=== PATIENT | female | born 1935 | race Caucasian/White ===

== ENCOUNTER 2021-08-16 14:11 | Inpatient (IN) | payer OTHER ==
[2021-08-16 15:20] LABS: Absolute Lymphocytes (CBC) 1.4 K/uL (0.7-4.9); Basophils % 0.7 % (0-1.3); Hematocrit 41.7 % (36.0-45.0); Lymphocytes % 19.7 % (15.3-44.8); MPV 9.7 fL (7.6-11.3)
--- NOTE | 2021-08-16 15:32 | RAD REPORT ---
EXAM DESCRIPTION: RAD - Chest Single View - 08/16/2021 3:22 pm CLINICAL HISTORY: weakness, sob COMPARISON: <Comparisons> FINDINGS: Lines: None. Lungs: Emphysema. Increased basilar airspace disease is noted. Pleural: No significant pleural effusions or pneumothorax. Cardiac: The heart size is within normal limits. Bones: Remote rib fractures. Other: Large hiatal hernia. IMPRESSION: Increasing ill-defined basilar opacities which may reflect pneumonia.
[2021-08-16 15:40] LABS: BUN Blood Urea Nitrogen 15 mg/dL (7-18); Bicarbonate 27 mmol/L (21-32); Glucose Level 155 mg/dL (74-106); Magnesium 1.5 mg/dL (1.8-2.4); NT PRO-BNP 555 pg/mL (<450); Potassium 4.3 mmol/L (3.5-5.1); Sodium Level 143 mmol/L (136-145); Troponin (Emerg Dept Use Only) < 0.02 ng/mL (0.0-0.045)
[2021-08-16] MEDS ORDERED: NA CHLORIDE 0.9% 500 ML ONE (16:08)
[2021-08-16] MEDS ORDERED: METHYLPREDNISOLONE 125 MG INJ ONE (16:15)
[2021-08-16] MEDS ORDERED: AZITHROMYCIN 500 MG INJ IVPB ONE (16:16)
[2021-08-16] MEDS ORDERED: CEFTRIAXONE 1000 MG/VIAL ONE (16:16)
[2021-08-16] MEDS ORDERED: NA CHLORIDE 0.9% 250 ML ONE (16:16)
[2021-08-16] MEDS ORDERED: LEVALBUTEROL 1.25 MG/3 ML NEB ONE (16:16)
[2021-08-16 16:20] LABS: SARS-COV-2 RT PCR NEGATIVE (NEGATIVE)
--- NOTE | 2021-08-16 17:23 | ER ---
Nurse's Notes [facility] [place] Name: dAdis Benitez Age: 86 yrs Sex: Female : 1935 Arrival Date: 08/16/2021 Time: 14:14 Bed 23 Private MD: Diagnosis: Pneumonia, unspecified organism;Hypoxemia;Weakness Presentation: 08/16 14:20 Chief complaint: Spouse and/or significant other states: " She got weak and had to lay tw5 down. We were on the way to the dentist. She couldn't' get into the car and wanted to lay down. She actually laid down in the garage and I got a pillow for her. She never passed out. Coronavirus screen: Vaccine status: Patient reports receiving the 2nd dose of the covid vaccine. Date May 2021. Ebola Screen: Patient negative for fever greater than or equal to 101.5 degrees Fahrenheit, and additional compatible Ebola Virus Disease symptoms Patient denies exposure to infectious person. Patient denies travel to an Ebola-affected area in the 21 days before illness onset. No acute neurological deficit is noted. Initial Sepsis Screen: Does the patient meet any 2 criteria? No. Patient's initial sepsis screen is negative. Does the patient have a suspected source of infection? No. Patient's initial sepsis screen is negative. Risk Assessment: Do you want to hurt yourself or someone else? Patient reports no desire to harm self or others. Onset of symptoms was August 16, 2021 at 13:30. 14:20 Method Of Arrival: Ambulatory tw5 14:20 Acuity: VERA 3 tw5 Triage Assessment: 14:27 The onset of the patients symptoms was August 16, 2021 at 13:30. General: Appears in tw5 no apparent distress. Behavior is calm, cooperative. Pain: Denies pain. Neuro: Reports weakness. Historical: - Allergies: 14: eggs; tw5 - PMHx: 14: Hypothyroidism; tw5 - PSHx: 14: Lumpectomy of breast; tw5 - Immunization history:: Client reports receiving the 2nd dose of the Covid vaccine. - Social history:: Smoking status: Patient reports the use of cigarette tobacco products, a couple a day. - Family history:: not pertinent. - Hospitalizations: : No recent hospitalization is reported. Screenin:44 Abuse screen: Denies threats or abuse. Denies injuries from another. Nutritional jw6 screening: No deficits noted. Tuberculosis screening: No symptoms or risk factors identified. Fall Risk IV access (20 points). Gait- Weak (10 pts.). Assessment: 14:41 VAN Scoring: Arm Drift: Patients demonstrates NO arm weakness. Patient is VAN Negative. jw6 The patient has not been NPO before screening. The patient is alert, and able to follow commands. The patient does not exhibit slurred or garbled speech. The patient is not exhibiting difficulty speaking. The patient is able to swallow own secretions with no drooling or need for suction. Patient tolerated one teaspoon of water. No drooling, immediate coughing, gurgling, or clearing of the throat was noted. The patient passed the bedside swallow screening. Oral medications may be given as ordered. Contact Physician for further diet orders. not done Provider notified of bedside swallow screening results: Harish Salgado MD. T-PA (Activase) Screening: Indications:. 14:44 General: Appears in no apparent distress. comfortable, Behavior is calm, cooperative. jw6 Pain: Denies pain. Neuro: No deficits noted. Neuro: Cardiovascular: No deficits noted. Respiratory: No deficits noted. GI: No deficits noted. : No deficits noted. EENT: No deficits noted. Derm: No deficits noted. Musculoskeletal: No deficits noted. Vital Signs: 14:20 BP 141 / 74; Pulse 80; Resp 16; Temp 97.9; Pulse Ox 93% on R/A; Weight 58.97 kg; Height tw5 5 ft. 8 in. (172.72 cm); Pain 0/10; 14:40 BP 100 / 66; Pulse 73; Resp 16; Temp 98.9; Pulse Ox 91% on R/A; Weight 58.97 kg; Height jw6 5 ft. 8 in. (172.72 cm); Pain 0/10; 16:10 BP 106 / 61; Pulse 64; Resp 16; Pulse Ox 100% on Non-rebreather mask; jw6 17:16 BP 113 / 52; Pulse 67; Resp 20; Pulse Ox 100% on Non-rebreather mask; jw6 17:25 Pulse Ox 99% on 4 lpm NC; jw6 18:25 BP 125 / 64; Pulse 70; Resp 20; Pulse Ox 96% on 4 lpm NC; jw6 14:40 Body Mass Index 19.77 (58.97 kg, 172.72 cm) jw6 NIH Stroke Scale Scores: 14:41 NIHSS Score: 0 jw6 ED Course: 14:14 Patient arrived in ED. mr 14:26 Triage completed. tw5 14:27 Arm band placed on right wrist. tw5 14:40 Lyssa Tavarez is Primary Nurse. jw6 14:43 Harish Salgado MD is Attending Physician. rn 14:44 Patient has correct armband on for positive identification. Bed in low position. Call jw6 light in reach. Side rails up X 1. Adult w/ patient. 14:44 No provider procedures requiring assistance completed. Initial lab(s) drawn, by ut, jw6 sent to lab. Inserted saline lock: 20 gauge in right wrist, using aseptic technique. 15:14 BMP Sent. jw6 15:14 Blood Culture Adult (2) Sent. jw6 15:14 CBC with Diff Sent. jw6 15:22 XRAY CXR (1 view) In Process Unspecified. EDMS 16:10 Warm blanket given. jw6 16:37 Oxygen administration via non-rebreather mask 10L/min Response to oxygen therapy: jw6 symptoms improved. 17:22 Keyana Foote MD is Hospitalizing Provider. rn 18:25 Patient admitted, IV remains in place. jw6 Administered Medications: 15:46 Drug: NS 0.9% 500 ml Route: IV; Rate: bolus; Site: right wrist; jw6 17:14 Follow up: Response: No adverse reaction; IV Status: Completed infusion; IV Intake: jw6 500ml 16:01 Drug: SOLU-Medrol (methylPrednisoLONE) 125 mg Route: IVP; Site: right wrist; jw6 16:02 Follow up: Response: No adverse reaction jw6 16:01 Drug: Xopenex (levalbuterol) 1.25 mg Route: Inhalation; jw6 16:01 Follow up: Response: No adverse reaction jw6 16:01 Drug: Rocephin (cefTRIAXone) 1 grams Route: IV; Rate: calculated rate; Site: right jw wrist; 16:01 Follow up: Response: No adverse reaction; IV Status: Completed infusion jw6 16:01 Drug: Zithromax (azithromycin) 500 mg Route: IVPB; Infused Over: 1 hrs; Site: right jw6 wrist; 17:14 Follow up: Response: No adverse reaction; IV Status: Completed infusion; IV Intake: jw6 250ml Point of Care Testing: Blood Glucose: 14:27 Blood Glucose: 144 mg/dL; tw5 Ranges: Intake: 17:14 IV: 500ml; Total: 500ml. jw6 17:14 IV: 250ml; Total: 750ml. jw6 Outcome: 17:23 Decision to Hospitalize by Provider. rn 18:24 Admitted to Med/surg accompanied by tech, via stretcher, with oxygen, with chart, jw6 Report called to CARLOS Hsu 18:24 Condition: good 18:24 Instructed on the need for admit, Demonstrated understanding of instructions. 18:35 Patient left the ED. jw6 NIH Stroke Scale - NIH Stroke Score Date: 08/16/2021 Time: 14:41 Total Score = 0 1a. Level of Consciousness (LOC) - 0(Alert) 1b. Level of Consciousness (LOC) (Month \\T\\ Age) - 0(Both) 1c. LOC Commands (Open \\T\\ Closes Eyes/Narcotics And Vice Detective) - 0(Both) 2. Best Gaze (Lateral Gaze Paresis) - 0(Normal) 3. Visual Field Loss - 0(No visual loss) 4. Facial Palsy - 0(Normal) 5a. Left Arm: Motor (10-second hold) - 0(No drift) 5b. Right Arm: Motor (10-second hold) - 0(No drift) 6a. Left Leg: Motor (5-second hold - always test supine) - 0(No drift) 6b. Right Leg: Motor (5-second hold - always test supine) - 0(No drift) 7. Limb Ataxia (finger/nose \\T\\ heel/cunningham - test with eyes open) - 0(Absent) 8. Sensory Loss (pinprick arms/legs/face) - 0(Normal) 9. Best Language: Aphasia (description/naming/reading) - 0(No aphasia) 10. Dysarthria (speech clarity - read or repeat words) - 0(Normal) 11. Extinction and Inattention (visual/tactile/auditory/spatial/personal) - 0(No abnormality) Initials: jw6 Signatures: Dispatcher [employer] Balbina Sanabria Roman, MD MD rn Wood, Tiffany 5 Lyssa Tavarez jw6 Corrections: (The following items were deleted from the chart) 14:29 14:27 PMHx: None; krystyna tw 17:15 16:10 BP 106 / 61; Pulse 64bpm; Resp 16bpm; Pulse Ox 100% RA; 6 jw6 17:17 17:16 BP 113 / 52; Pulse 67bpm; Resp 15bpm; Pulse Ox 100% Non-rebreather mask; [place] [id number]
--- NOTE | 2021-08-16 17:23 | EDPHYS ---
Physician Documentation [facility] Name: Addis Benitez Age: 86 yrs Sex: Female : 1935 Arrival Date: 08/16/2021 Time: 14:14 Bed 23 Private MD: ED Physician Hairsh Salgado HPI: 08/16 15:18 This 86 yrs old Female presents to ER via Ambulatory with complaints of rn Weakness. 15:19 Patient reports was going to the dentist today when he was walking out to the garage rn felt generalized weakness. laid her down in garage for 10 minutes and she felt much better. No syncope. Denies any focal pain. Reports long-term smoking since her 20s. Still smoking. Reports mild runny nose and mild cough but denies any fever. Denies any chest pain or abdominal pain. Denies any nausea/vomiting/diarrhea.. Onset: The symptoms/episode began/occurred just prior to arrival. Severity of symptoms: At their worst the symptoms were moderate in the emergency department the symptoms have improved. The patient has not experienced similar symptoms in the past. The patient has not recently seen a physician. Historical: - Allergies: 14:27 eggs; tw5 - PMHx: 14:27 Hypothyroidism; tw5 - PSHx: 14:27 Lumpectomy of breast; tw5 - Immunization history:: Client reports receiving the 2nd dose of the Covid vaccine. - Social history:: Smoking status: Patient reports the use of cigarette tobacco products, a couple a day. - Family history:: not pertinent. - Hospitalizations: : No recent hospitalization is reported. ROS: 15:19 Constitutional: Negative for fever, chills, and weight loss, Eyes: Negative for injury, rn pain, redness, and discharge, Neck: Negative for injury, pain, and swelling, Cardiovascular: Negative for chest pain, palpitations, and edema, Respiratory: Negative for pleuritic chest pain Abdomen/GI: Negative for abdominal pain, nausea, vomiting, diarrhea, and constipation, Back: Negative for injury and pain, MS/Extremity: Negative for injury and deformity, Skin: Negative for injury, rash, and discoloration, Neuro: Negative for headache, numbness, tingling, and seizure. Exam: 15:19 Constitutional: This is a well developed, well nourished patient who is awake, alert, rn and in no acute distress. Head/Face: Normocephalic, atraumatic. Eyes: Periorbital areas with no swelling, redness, or edema. ENT: Dry mucous membranes Cardiovascular: Regular rate and rhythm. No pulse deficits. Respiratory: Mild tachypnea with diminished breath sounds at bases Abdomen/GI: Soft, non-tender Skin: Warm, dry MS/ Extremity: Pulses equal, no cyanosis. Neurovascular intact. Full, normal range of motion. Equal circumference. Neuro: Awake and alert, GCS 15, oriented to person, place, and situation. Cranial nerves II-XII grossly intact. Motor strength 5/5 in all extremities. Sensory grossly intact. Cerebellar exam normal. 15:34 ECG was reviewed by the Attending Physician. rn Vital Signs: 14:20 BP 141 / 74; Pulse 80; Resp 16; Temp 97.9; Pulse Ox 93% on R/A; Weight 58.97 kg; Height tw5 5 ft. 8 in. (172.72 cm); Pain 0/10; 14:40 BP 100 / 66; Pulse 73; Resp 16; Temp 98.9; Pulse Ox 91% on R/A; Weight 58.97 kg; Height jw6 5 ft. 8 in. (172.72 cm); Pain 0/10; 16:10 BP 106 / 61; Pulse 64; Resp 16; Pulse Ox 100% on Non-rebreather mask; jw6 17:16 BP 113 / 52; Pulse 67; Resp 20; Pulse Ox 100% on Non-rebreather mask; jw6 17:25 Pulse Ox 99% on 4 lpm NC; jw6 18:25 BP 125 / 64; Pulse 70; Resp 20; Pulse Ox 96% on 4 lpm NC; jw6 14:40 Body Mass Index 19.77 (58.97 kg, 172.72 cm) jw6 NIH Stroke Scale Scores: 14:41 NIHSS Score: 0 jw6 MDM: 14:43 Patient medically screened. rn 17:21 Differential Diagnosis flu, COVID, pneumonia, UTI, dehydration. Data reviewed: vital rn signs, nurses notes, lab test result(s), EKG, radiologic studies, plain films, and as a result, I will admit patient. Data interpreted: bottom liner: rate is 67 beats/min, rhythm is normal sinus rhythm, regular, with no ectopy, Interpretation: normal rate, normal rhythm, Pulse oximetry: on room air is 89 %. Interpretation: hypoxia. Plan: O2 by NC applied. Test interpretation: by ED physician or midlevel provider: ECG, plain radiologic studies, X-ray shows bibasilar opacities consistent with pneumonia. Counseling: I had a detailed discussion with the patient and/or guardian regarding: the historical points, exam findings, and any diagnostic results supporting the discharge/admit diagnosis, lab results, radiology results, the need for further work-up and treatment in the hospital. Response to treatment: There is no appreciated change of the patient's symptoms at this time, and as a result, I will admit patient. Admission orders: after a detailed discussion of the patient's condition and case, the admit orders are written by me. ED course: Patient with possible pneumonia on chest x-ray and oxygen requirement. Patient does not require oxygen at home. Has longstanding smoking history without diagnosis of COPD. Will admit with antibiotics and further care to Dr. Foote. 08/16 14:42 Order name: Glucose, Ancillary Testing; Complete Time: 15:00 EDOK 08/16 15:00 Order name: BMP rn 08/16 15:00 Order name: Blood Culture Adult (2) 08/16 15:00 Order name: CBC with Diff rn 08/16 15:00 Order name: Magnesium; Complete Time: 15:43 08/16 15:00 Order name: NT PRO-BNP; Complete Time: 15:43 08/16 15:00 Order name: Troponin (emerg Dept Use Only); Complete Time: 15:43 08/16 15:00 Order name: Procalcitonin; Complete Time: 18:12 08/16 15:01 Order name: Basic Metabolic Panel; Complete Time: 15:43 EDOK 08/16 15:01 Order name: Blood Culture EDOK 08/16 15:01 Order name: CBC with Automated Diff; Complete Time: 15:33 EDOK 08/16 15:42 Order name: COVID-19/FLU A+B; Complete Time: 16:34 [facility] 08/16 15:00 Order name: XRAY CXR (1 view); Complete Time: 15:34 08/16 15:00 Order name: EKG; Complete Time: 15:01 08/16 15:00 Order name: Cardiac monitoring; Complete Time: 15:15 rn 08/16 15:00 Order name: EKG - Nurse/Tech; Complete Time: 15:35 rn 08/16 15:00 Order name: IV Saline Lock; Complete Time: 15:15 rn 08/16 15:00 Order name: Labs collected and sent; Complete Time: 15:15 rn 08/16 15:00 Order name: O2 Per Protocol; Complete Time: 15:15 rn 08/16 15:00 Order name: O2 Sat Monitoring; Complete Time: 15:15 rn EC:34 Rate is 62 beats/min. Rhythm is regular. QRS is positive in lead I and negative in lead rn aVF. HI interval is normal. QRS interval is normal. QT interval is normal. No Q waves. T waves are Normal. No ST changes noted. Clinical impression: NSR w/ Non-specific ST/T Changes. Interpreted by me. Reviewed by me. Administered Medications: 15:46 Drug: NS 0.9% 500 ml Route: IV; Rate: bolus; Site: right wrist; [facility] 17:14 Follow up: Response: No adverse reaction; IV Status: Completed infusion; IV Intake: jw6 500ml 16:01 Drug: SOLU-Medrol (methylPrednisoLONE) 125 mg Route: IVP; Site: right wrist; [facility] 16:02 Follow up: Response: No adverse reaction jw 16:01 Drug: Xopenex (levalbuterol) 1.25 mg Route: Inhalation; [facility] 16:01 Follow up: Response: No adverse reaction [facility] 16:01 Drug: Rocephin (cefTRIAXone) 1 grams Route: IV; Rate: calculated rate; Site: right [address]; 16:01 Follow up: Response: No adverse reaction; IV Status: Completed infusion jw6 16:01 Drug: Zithromax (azithromycin) 500 mg Route: IVPB; Infused Over: 1 hrs; Site: right [address]; 17:14 Follow up: Response: No adverse reaction; IV Status: Completed infusion; IV Intake: jw6 250ml Point of Care Testing: Blood Glucose: 14:27 Blood Glucose: 144 mg/dL; tw5 Ranges: Critical Glucose Levels:Adult <50 mg/dl or >400 mg/dl <40 mg/dl or >180 mg/dl Disposition Summary: 10/26/21 17:23 Hospitalization Ordered Hospitalization Status: Inpatient Admission rn Provider: Keyana Foote rn Location: Telemetry/MedSurg (Inpatient) rn Condition: Stable rn Problem: new rn Symptoms: are unchanged rn Bed/Room Type: Standard rn Room Assignment: 427(08/16/21 17:55) bd Diagnosis - Pneumonia, unspecified organism rn - Hypoxemia rn - Weakness rn Forms: - Medication Reconciliation Form rn - SBAR form rn NIH Stroke Scale - NIH Stroke Score Date: 08/16/2021 Time: 14:41 Total Score = 0 1a. Level of Consciousness (LOC) - 0(Alert) 1b. Level of Consciousness (LOC) (Month \T\ Age) - 0(Both) 1c. LOC Commands (Open \T\ Closes Eyes/Butadiene Converter Operator) - 0(Both) 2. Best Gaze (Lateral Gaze Paresis) - 0(Normal) 3. Visual Field Loss - 0(No visual loss) 4. Facial Palsy - 0(Normal) 5a. Left Arm: Motor (10-second hold) - 0(No drift) 5b. Right Arm: Motor (10-second hold) - 0(No drift) 6a. Left Leg: Motor (5-second hold - always test supine) - 0(No drift) 6b. Right Leg: Motor (5-second hold - always test supine) - 0(No drift) 7. Limb Ataxia (finger/nose \T\ heel/cunningham - test with eyes open) - 0(Absent) 8. Sensory Loss (pinprick arms/legs/face) - 0(Normal) 9. Best Language: Aphasia (description/naming/reading) - 0(No aphasia) 10. Dysarthria (speech clarity - read or repeat words) - 0(Normal) 11. Extinction and Inattention (visual/tactile/auditory/spatial/personal) - 0(No abnormality) Initials: jw6 Signatures: Dispatcher [employer] EDMS Kareen Huizar Roman, MD MD rn Wood, Tiffany twLyssa Cartwright jw6 Corrections: (The following items were deleted from the chart) 14:29 14:27 PMHx: None; tw5 tw5 15:25 15:19 Constitutional: This is a well developed, well nourished patient who is rn awake, alert, and in no acute distress. Head/Face: Normocephalic, atraumatic. Eyes: Periorbital areas with no swelling, redness, or edema. ENT: Dry mucous membranes Cardiovascular: Regular rate and rhythm. No pulse deficits. Respiratory: Mild tachypnea with diminished breath sounds at bases Abdomen/GI: Soft, non-tender Skin: Warm, dry MS/ Extremity: Pulses equal, no cyanosis. Neurovascular intact. Full, normal range of motion. Equal circumference. Neuro: Awake and alert, GCS 15, oriented to person, place, and situation. Cranial nerves II-XII grossly intact. Motor strength 5/5 in all extremities. Sensory grossly intact. Cerebellar exam normal. rn 15:42 15:01 CORONAVIRUS+MR.LAB.BRZ ordered. EDMS EDMS 15:42 15:01 Influenza Screen (A \T\ B)+BA.LAB.BRZ ordered. EDMS EDMS 17:55 17:23 lisa bd
[2021-08-16] MEDS ORDERED: ONDANSETRON 4 MG/2 ML VIAL IV PRN (19:57)
[2021-08-16] MEDS ORDERED: ALBUTEROL 2.5 MG/3 ML NEB SOL NEB PRN (19:57)
[2021-08-16] MEDS ORDERED: ACETAMINOPHEN 500 MG TAB PO PRN (19:57)
[2021-08-16] MEDS ORDERED: IPRATROPIUM BROM 0.5MG/2.5ML NEB PRN (19:57)
[2021-08-16 21:22] VITALS: BMI 2821.1
[2021-08-17 05:05] LABS: Absolute Lymphocytes (CBC) 0.8 K/uL (0.7-4.9); Basophils % 0.2 % (0-1.3); Hematocrit 37.6 % (36.0-45.0); Lymphocytes % 14.5 % (15.3-44.8); MPV 9.6 fL (7.6-11.3); RBC Red Blood Cell Count 3.99 M/uL (3.86-4.86)
[2021-08-17] MEDS: NA CHLORIDE 0.9% 100 ML ONE ×2 (05:19→05:40)
[2021-08-17 05:22] LABS: Potassium 5.6 mmol/L (3.5-5.1)
[2021-08-17] MEDS ORDERED: CEFTRIAXONE 1000 MG/VIAL ONE (05:40)
[2021-08-17] MEDS ORDERED: CEFTRIAXONE 1 GM/NS 50 ML 1 GM/50 ML BAG IV SCH (06:00)
[2021-08-17] MEDS ORDERED: AZITHROMYCIN IV 250 MG in NA CHLORIDE 0.9% 250 ML IVPB SCH (09:00)
--- NOTE | 2021-08-17 12:21 | P.CNS ---
Date of Consult: 08/17/21 Reason for Consult: Hypoxemia Chief Complaint: Weakness near fall History of Present Illness: Patient is 86 years of age has been present at the bedside was about to go to her dentist felt very weak near fall and the decided to bring her to the emergency room he currently denies any complaints no shortness of breath no prior pulmonary complaints smokes 2 to 3 cigarettes a day no history of any cardiac problem denies any weakness of her extremities Allergies shellfish derived Allergy (Severe, Verified 11/15/16 10:06) n/v, swelling, sob egg Allergy (Verified 11/15/16 10:06) "very ill" Iodinated Contrast Media [Iodinated Contrast Media - IV Dye] Allergy (Verified 11/15/16 10:06) shellfish allergy Home Medications: Alendronate Sodium [Fosamax] 70 mg PO DAILY 11/14/16 Levothyroxine Sodium 150 mcg PO DAILY 11/14/16 Simvastatin [Zocor] 40 mg PO BEDTIME 11/14/16 - Past Medical/Surgical History -: Hypothyroid -: Osteoporosis -: Hyperlipidemia - Social History Smoking Status: Current every day smoker Alcohol use: Yes CD- Drugs: No Caffeine use: Yes Place of Residence: Home Review of Systems 10-point ROS is otherwise unremarkable Physical Examination Temp Pulse Resp BP Pulse Ox 96.8 F 59 19 133/69 98 08/17/21 07:00 08/17/21 07:00 08/17/21 07:00 08/17/21 07:00 08/17/21 07:00 General: Alert, In no apparent distress, Oriented x3 Neck: Supple Respiratory: Clear to auscultation bilaterally, Diminished Gastrointestinal: Normal bowel sounds, Soft and benign Musculoskeletal: No clubbing, No swelling Integumentary: No rashes, No breakdown Neurological: Normal speech, Normal strength at 5/5 x4 extr Laboratory Data (last 24 hrs) 08/16/21 15:00: WBC 6.90, Hgb 13.8, Hct 41.7, Plt Count 160 08/16/21 15:00: Sodium 143, Potassium 4.3, BUN 15, Creatinine 0.95, Glucose 155 H, Magnesium 1.5 L - Problems (1) Hypoxemia Current Visit: Yes Status: Acute Plan: Patient is 86 years of age admitted with mild hypoxemia she felt a little weak and was brought here to the emergency room chemistries on admission were unremarkable vital signs are stable check room air pulse ox ambulate patient COPD changes on the x-ray with some interstitial changes in the lower lobes left worse than the right no evidence of sepsis ambulate stable discharge home
[2021-08-17 14:18] LABS: Blood O2 Saturation 92.7 % (92-98.5)
[2021-08-17 14:19] LABS: Arterial Blood Carboxyhemoglob 1.2 % (0-1.5); Blood Gas Oxyhemoglobin 90.8 % (94-97)
--- NOTE | 2021-08-17 16:09 | EKG ---
Test Date: 2021-08-16 Test Time: 15:28:32 Construction Sales Representative: KHOI MEASUREMENT RESULTS: Intervals: Rate: 62 UT: 154 QRSD: 84 QT: 418 QTc: 424 [place]: P: 74 UT: 154 QRS: -59 T: 64 INTERPRETIVE STATEMENTS: Normal sinus rhythm Left anterior fascicular block Cannot rule out Inferior infarct (masked by fascicular block?), age undetermined Abnormal ECG Compared to ECG 11/14/2016 15:50:57 Left anterior fascicular block now present Sinus arrhythmia no longer present Left-axis deviation no longer present Myocardial infarct finding still present Electronically Signed On 08-17-21 16:07:11 CDT by Baldev Mir
[2021-08-17] MEDS ORDERED: ENOXAPARIN 30 MG/0.3 ML SQ SCH (17:00)
[2021-08-17] MEDS: CEFTRIAXONE 1 GM/NS 50 ML 1 GM/50 ML BAG IV SCH (17:31)
[2021-08-17] MEDS: predniSONE 20 MG TAB PO SCH (20:05)
[2021-08-17] MEDS ORDERED: HOME MED 1 EA UNK (Simvastatin [Zocor*] 40 MG Tablet) PO SCH (21:00)
[2021-08-17] MEDS ORDERED: ATORVASTATIN 20 MG TAB PO SCH (21:00)
--- NOTE | 2021-08-17 22:14 | HP ---
Date of Admission: 08/16/2021 History Of Present Illness: An 86-year-old female who came to emergency room complained of feeling f atigued all over for the past day or 2. She has also noticed she has been coughing off and on, but n o shortness of breath and no chest pain. No fever, no chills. Her workup in the emergency room show ed she had bilateral pneumonia, infiltrate, and she was admitted for that. Review of Systems: Cardiovascular: No complaint. Respiratory: Cough. No other complaint. Gastrointestinal: No complaints. Genitourinary: No complaints. Skeletomuscular: No complaint. Neurological: Patient has benign essential tremors. No change. No other complaint. Social History: No smoking, alcohol, or drug abuse history. Family History: Noncontributing. Past Medical History: 1.Hypothyroidism. 2.Hyperlipidemia. 3.Osteoporosis. 4.Benign essential tremors. Home Medications: Include Fosamax 70 mg p.o. q. weekly, levothyroxine 100 mcg p.o. daily, and simvas tatin 40 mg p.o. daily. Allergies: SHELLFISH, EGG AND IODINATED CONTRAST MEDIA. Physical Examination: Vital Signs: Blood pressure 130/69, pulse 59, temperature 96.8. Heart: Regular rate and rhythm. Chest: Mild bilateral crackles. Abdomen: Soft, benign. Bowel sounds are active. Extremities: No edema. No cyanosis. Peripheral pulses are felt. Neurological examination: Benign essential tremors with head nodding and kinetic tremors, mild to mo derate. No change. Chest x-ray, ill-defined bibasilar opacities consistent with pneumonia. Laboratory Data: CBC noted; white cell count 6.9. Chemistry; BUN 19, creatinine 0.88, and GFR 61. Sodium 146. BNP 555. Prolactin less than 0.05. The patient with COVID-19 negative and influenza A and B negative. Assessment And Plan: 1.Bilateral pneumonia. The patient is being admitted, put her on IV vancomycin and ceftriaxone and breathing treatments. We will continue her home medicines for chronic medical illnesses. 2.Hyperkalemia. We will repeat potassium level and if it stays above 5.4, might give her Kayexalate . 3.We will continue the patient on the rest of her home medications. 4.Blood cultures are pending. The patient is on oxygen protocol. We will put also the patient on s mall dose of Lovenox prophylaxis. Look orders for details. MFS/MODL Voice ID: [id number]
[2021-08-18 04:00] LABS: Absolute Lymphocytes (CBC) 0.9 K/uL (0.7-4.9); Basophils % 0.1 % (0-1.3); Hematocrit 37.1 % (36.0-45.0); Lymphocytes % 8.9 % (15.3-44.8); MPV 9.4 fL (7.6-11.3); RBC Red Blood Cell Count 3.94 M/uL (3.86-4.86)
[2021-08-18 04:24] LABS: Potassium 5.2 mmol/L (3.5-5.1)
[2021-08-18 05:18] LABS: Blood Morphology Comment NOT SEEN (NOT SEEN); Platelet Estimate ADEQ
[2021-08-18] MEDS: CEFTRIAXONE 1 GM/NS 50 ML 1 GM/50 ML BAG IV SCH (06:01)
[2021-08-18] MEDS ORDERED: LEVOTHYROXINE SOD 0.075 MG TAB PO SCH (06:30)
[2021-08-18 08:50] VITALS: O2SAT 98
[2021-08-18] MEDS: predniSONE 20 MG TAB PO SCH (09:20)
[2021-08-18 10:18] VITALS: BP 122/64; TEMP 98
--- NOTE | 2021-08-18 12:38 | P.PN ---
Subjective Date of Service: 08/18/21 Chief Complaint: Respiratory failure Patient is doing well no new complaints Review of Systems 10-point ROS is otherwise unremarkable Physical Examination - Vital Signs Temperature: 98 F Blood Pressure: 122/64 Pulse: 64 Respirations: 20 Pulse Ox (%): 96 - Physical Exam General: Alert, In no apparent distress, Oriented x3 Respiratory: Clear to auscultation bilaterally, Diminished Assessment & Plan - Problems (Diagnosis) (1) Hypoxemia Current Visit: Yes Status: Acute Plan: I suspect she may well have underlying obstructive airways disease patient is very hypoxic be discharged home on low-dose prednisone 10 twice a day for 10 days in addition to bronchodilator example Advair or Symbicort need outpatient pulmonary function testing room air PO2 61 patient will not qualify for home O2 vital signs stable
--- NOTE | 2021-08-19 11:00 | DS ---
Date of Discharge: 08/18/2021 86-year-old female who was admitted to the hospital because of feeling tired, fatigued, thought to be secondary to pneumonia, evident by chest x-ray changes. The patient's past medical history, social history, family history, medications, allergies as per adm it note. Also, physical examination and diagnostic data as per admit note. Hospital Course: The patient was admitted to the hospital. She was put on IV ceftriaxone, vancomyci n, IV steroids, and beta 2 agonist breathing treatments. Continued the patient on home medicines. H er cultures were negative. She was also COVID-19 negative. The patient was doing well and she was n ot hypoxic on room air. Dr. Walden had seen the patient, thought that she had pneumonia. She does not have pneumonia. The patient has been a previous smoker. There was exacerbation of her COPD. T he patient does not take any inhalers I talked with the patient, would repeat labs as she is stable. Chem-7 and CBC were fine today. Her TSH was less than 0.005, that may patient feeling tired because of over medication dosage, so I will hold on her levothyroxine for the next 3 d ays and then we may start her back on normal dosing. The patient is to be discharged to resume the r est of her home medicines except as mentioned for the levothyroxine to hold on it for the next 3 days , and I will discharge the patient on Zithromax 250 mg p.o. for the next 3 days to continue _ also on albuterol inhaler 2 puffs q.i.d. p.r.n. The patient will follow up with me early next week . Look discharge orders for details. MFS/MODL Voice ID: [id number] Report ID: [id number]
[2021-08-23] MEDS ORDERED: ALENDRONATE 70 MG TAB PO SCH (06:30)
== END 2021-08-18 13:05 | disposition home or self-care (01) | DRG 192 ==
LOC: ER 14:11 → ERHOLD 17:32 → 4TH 18:27
PROVIDERS: ADMIT Internal Medicine; ATTEND Internal Medicine
DX: J44.1 Chronic obstructive pulmonary disease with (acute) exacerbation (principal); E03.9 Hypothyroidism, unspecified; E78.5 Hyperlipidemia, unspecified; M81.0 Age-related osteoporosis without current pathological fracture; E87.5 Hyperkalemia; R09.02 Hypoxemia; Z91.041 Radiographic dye allergy status; Z91.012 Allergy to eggs; Z91.013 Allergy to seafood; Z20.822 Contact with and (suspected) exposure to COVID-19; Z87.891 Personal history of nicotine dependence
CPT/HCPCS: 0240U; 36415; 71045; 80048; 82805; 82947; 83735; 83880; 84132; 84145; 84443; 84484; 85025; 87040; 93005; 94760; 96365; 96375; 99285; J0456; J0696; J1650; J2930; J7040; J7050; J7512

== ENCOUNTER 2025-07-22 19:19 | Inpatient (IN) | payer OTHER ==
[2025-07-22 20:01] LABS: Absolute Lymphocytes (CBC) 2.0 K/uL (0.7-4.9); Hematocrit 40.1 % (36.0-45.0); Hemoglobin 13.2 g/dL (12.0-15.0); MCH 30.0 pg (27.0-35.0); MCHC 33.0 g/dL (32.0-36.0); MCV 91.1 fL (80-100); MPV 9.0 fL (7.6-11.3); Nucleated RBC Absolute Count 0.0 (0-0); Nucleated Red Blood Cells % 0.1 % (0-0); RBC Red Blood Cell Count 4.40 M/uL (3.86-4.86); White Blood Count 5.80 thou/uL (4.3-10.9)
[2025-07-22 20:17] LABS: Influenza A Ag Negative; Influenza B Ag Negative; SARS-CoV-2 Antigen Rapid Res Negative (Negative)
[2025-07-22 20:20] LABS: Anion Gap 5.3 mEq/L (5.0-15.0); BUN Blood Urea Nitrogen 18.0 mg/dL (7-18); Glucose Level 111.0 mg/dL (74-106); Potassium 4.3 mEq/L (3.5-5.1); Troponin High Sensitivity 7.9 pg/mL (<58.9)
--- NOTE | 2025-07-22 21:22 | RAD REPORT ---
EXAMINATION: ONE VIEW CHEST XR CLINICAL INDICATION: Female, 89 years old.,DYSPNEA TECHNIQUE: Frontal chest projection is submitted. Examination is limited by patient positioning and t echnique. COMPARISON: 08/17/2023 FINDINGS: The lungs are diffusely emphysematous. Hazy bibasilar opacities, progressive on the left prior exam. No pneumothorax or sizable effusion. The heart is normal in size. Mediastinal contours are unremarkable. Left posterior rib deformities suggesting healing or healed fractures. IMPRESSION: Hazy bibasilar airspace opacities, progressive on the left, concerning for COPD exacerbation.
[2025-07-22] MEDS ORDERED: DOXYCYCLINE 100 MG CAP PO ONE (21:45)
[2025-07-22] MEDS ORDERED: METHYLPREDNISOLONE 125 MG INJ ONE (21:45)
[2025-07-22] MEDS ORDERED: IPRATROPIUM BROM 0.5MG/2.5ML ONE (21:45)
[2025-07-22] MEDS ORDERED: ALBUTEROL 2.5 MG/3 ML NEB SOL ONE (21:45)
--- NOTE | 2025-07-22 23:11 | EDPHYS ---
Physician Documentation [facility] Name: Addis Benitez Age: 89 yrs Sex: Female : 1935 Arrival Date: 07/22/2025 Time: 19:19 Bed 7 Private MD: ED Physician Brando Eastman HPI: 07/22 20:22 This 89 yrs old Female presents to ER via EMS with complaints of Shortness of breath. tt7 20:22 Patient reportedly was complaining of mild shortness of breath for the past 3 days, no tt7 associated chest pain. No productive cough or hemoptysis. EMS administered nebulizer treatment of albuterol and Atrovent. Currently on my assessment patient reports that she feels well and has no complaints. Historical: - Allergies: 19:33 Eggs; jb4 19:33 SHELLFISH; jb4 19:33 shrimp; jb4 - PMHx: 19:33 Hypothyroidism; Osteoporosis; hypercalcemia; Thrombocytopenia; jb4 - PSHx: 19:33 Lumpectomy of breast; jb4 - Immunization history:: Adult Immunizations up to date. - Infectious Disease History:: Denies. - Social history:: Smoking status: Patient/guardian denies using tobacco, but has a distant history of tobacco abuse. ROS: 20:27 Constitutional: negative for fever. Cardiovascular: negative for chest pain. tt7 Respiratory: positive for shortness of breath. Abdomen/GI: negative for abdominal pain, nausea, vomiting, diarrhea. MS/Extremity: negative for injury and deformity. Skin: negative for rash. Exam: 20:27 Constitutional: vital signs reviewed, well appearing. Head/Face: normocephalic, tt7 atraumatic. Eyes: no conjunctival injection, anicteric sclerae. ENT: mucus membranes moist. Neck: trachea midline, no JVD, no meningismus. Chest/axilla: normal chest wall appearance and motion, nontender, no crepitus. Cardiovascular: regular rate and rhythm, no murmurs, no rubs, no lower extremity edema. Respiratory: normal respiratory effort, no accessory muscle use, lungs CTAB. Abdomen/GI: soft, nondistended, nontender, no guarding or rebound, negative Church's sign, no McBurney point tenderness. Back: normal ROM. Skin: warm, dry, intact, normal turgor, normal color, no rash. MS/ Extremity: normal ROM of extremities, no gross deformities. Neuro: alert and oriented with appropriate mental status, normal speech, follows commands, no focal neurologic deficits. Psych: appropriate mood and affect. Vital Signs: 19:31 BP 177 / 77; Pulse 62; Resp 18; Temp 97.9(A); Pulse Ox 100% on Nebulizer Mask; Weight jb4 52 kg (M); Height 5 ft. 8 in. (R); 19:38 Pulse Ox 96% on R/A; jb4 20:49 BP 138 / 59; Pulse 56; Resp 16; Pulse Ox 96% on 2 lpm NC; jb4 21:54 BP 127 / 63; Pulse 56; Resp 17; Pulse Ox 99% on 2 lpm NC; mf3 23:15 BP 115 / 72; Pulse 58; Resp 16; Pulse Ox 97% on 2 lpm NC; jb4 07/23 00:25 BP 156 / 85; Pulse 62; Resp 20; Pulse Ox 98% on 2 lpm NC; jb4 01:45 BP 140 / 68; Pulse 63; Resp 19; Pulse Ox 97% on 2 lpm NC; jb4 07/22 19:31 Body Mass Index 17.43 (52.00 kg, 172.72 cm) jb4 MDM: 07/22 19:35 Medical Screening Exam initiated tt7 20:23 Differential Diagnosis Pneumonia, pneumothorax, acute upper respiratory tract tt7 infection, cardiac arrhythmia, ACS. Data reviewed: vital signs, nurses notes, lab test result(s), EKG. ED course: I independently interpreted the patient's EKG performed on 07/22/2025 at 1958. On my interpretation, EKG demonstrates sinus bradycardia, ventricular rate 56 bpm, normal axis, normal QRS interval, normal ST segments, no STEMI. 07/23 00:54 Data reviewed: radiologic studies. ED course: 89-year-old female who had 3 days of tt7 shortness of breath, vital signs stable on arrival, just completed nebulizer treatment with EMS and saturating appropriately on room air, workup was ordered including laboratory studies, flu/COVID antigens, and chest x-ray, while in the emergency department patient began to desaturate on room air, was hypoxic at 84% on room air, she was placed on 2 L nasal cannula with normalization of her oxygen saturation, chest x-ray on my interpretation did not show any evidence of pneumonia, she was treated for COPD exacerbation with DuoNeb treatment, IV Solu-Medrol, and oral doxycycline. I discussed the patient's clinical presentation, vital signs, laboratory studies, and radiographic findings with hospitalist Kristopher Bynum who accepts the patient for inpatient admission. 07/22 19:49 Order name: Basic Metabolic Panel; Complete Time: 20:21 tt7 07/22 19:49 Order name: CBC with Diff; Complete Time: 20:21 tt7 07/22 19:49 Order name: Troponin HS; Complete Time: 20:21 tt7 07/22 19:49 Order name: COVID-19 Ag + Flu A+B Ag; Complete Time: 20:21 tt7 07/22 19:49 Order name: XRAY Chest (1 view); Complete Time: 21:38 tt7 07/22 19:49 Order name: Cardiac monitoring; Complete Time: 20:01 tt7 07/22 19:49 Order name: EKG - Nurse/Tech; Complete Time: 20:01 tt7 07/22 19:49 Order name: O2 Per Protocol; Complete Time: 20:01 tt7 07/22 19:49 Order name: O2 Sat Monitoring; Complete Time: 20:01 tt7 Administered Medications: 07/22 21:53 Drug: MethylPrednisoLONE IVP 100 mg IVP once Route: IVP; Site: right wrist; mf3 21:53 Drug: Albuterol Inhalation 2.5 mg Inhalation once Route: Inhalation; mf3 21:53 Drug: Ipratropium Inhalation Aerosol 0.5 mg Inhalation once Route: Inhalation; mf3 21:53 Drug: Doxycycline PO 100 mg PO once Route: PO; mf3 Disposition: 07/23 00:57 Co-signature as Attending Physician, Brando Eastman DO. tt7 Disposition Summary: 07/22/25 23:10 Hospitalization Ordered Notes: Hospitalization Status: Inpatient Admission tt7 Provider: Kristopher Bynum Location: Telemetry/MedSurg (Inpatient) tt7 Condition: Stable tt7 Problem: new tt7 Symptoms: have improved tt7 Bed/Room Type: Standard tt7 Room Assignment: 212(07/23/25 00:50) kl Diagnosis - COPD/ Chronic obstructive pulmonary disease with (acute) exacerbation tt7 - Acute respiratory failure with hypoxia tt7 Forms: - Medication Reconciliation Form tt7 - SBAR form tt7 - Leadership Thank You Letter tt7 Signatures: Dispatcher [employer] EDMy Brantley, RN RN Rudy Mendieta RN RN jb4 Corazon Townsend rv1 Mahsa Deluna RN RN mf3 Brando Eastman, DO DO tt7 Corrections: (The following items were deleted from the chart) 07/22 19:49 19:49 BASIC METABOLIC PANEL+C.LAB.BRZ ordered. EDMS EDMS 19:49 19:49 CBC+H.LAB.BRZ ordered. EDMS EDMS 19:49 19:49 Troponin High Sensitivity+C.LAB.BRZ ordered. EDMS EDMS 19:49 19:49 COVID-19 Ag + Flu A+B Ag+I.LAB.BRZ ordered. EDMS EDMS 19:49 19:49 Chest Single View+RAD.RAD.BRZ ordered. EDMS EDMS 07/23 00:20 07/22 23:10 tt7 kl 07/23 00:45 00:20 205 kl rv1 00:46 00:45 212 rv1 rv1 00:50 00:46 205 rv1 kl
--- NOTE | 2025-07-22 23:11 | ER ---
Nurse's Notes [facility] Name: Addis Benitez Age: 89 yrs Sex: Female : 1935 Arrival Date: 07/22/2025 Time: 19:19 Bed 7 Private MD: Diagnosis: COPD/ Chronic obstructive pulmonary disease with (acute) exacerbation;Acute respiratory failure with hypoxia Presentation: 07/22 19:31 Chief complaint: EMS states: Pt reports SOB for the past 3 days that has been jb4 worsening. Pt has a 20g IV to the right wrist and was given a 1:1 neb treatment A:A. Coronavirus screen: At this time, the client does not indicate any symptoms associated with coronavirus-19. Ebola Screen: No symptoms or risks identified at this time. Initial Sepsis Screen: Does the patient meet any 2 criteria? No. Patient's initial sepsis screen is negative. Does the patient have a suspected source of infection? No. Patient's initial sepsis screen is negative. Risk Assessment: Do you want to hurt yourself or someone else? Patient reports no desire to harm self or others. Onset of symptoms was July 20, 2025. Transition of care: patient was not received from another setting of care. 19:31 Method Of Arrival: EMS: [facility] jb4 19:31 Acuity: VERA 3 jb4 Historical: - Allergies: 19:33 Eggs; jb4 19:33 SHELLFISH; jb4 19:33 shrimp; jb4 - PMHx: 19:33 Hypothyroidism; Osteoporosis; hypercalcemia; Thrombocytopenia; jb4 - PSHx: 19:33 Lumpectomy of breast; jb4 - Immunization history:: Adult Immunizations up to date. - Infectious Disease History:: Denies. - Social history:: Smoking status: Patient/guardian denies using tobacco, but has a distant history of tobacco abuse. Screenin:39 [facility] ED Fall Risk Assessment (Adult) History of falling in the last 3 months, jb4 including since admission No falls in past 3 months (0 pts) Confusion or Disorientation No (0 pts) Intoxicated or Sedated No (0 pts) Impaired Gait No (0 pts) Mobility Assist Device Used No (0 pt) Altered Elimination No (0 pt) Score/Fall Risk Level 0 - 2 = Low Risk Oriented to surroundings, Maintained a safe environment. Abuse screen: Denies threats or abuse. Nutritional screening: No deficits noted. Tuberculosis screening: No symptoms or risk factors identified. Assessment: 19:39 General: Appears in no apparent distress. comfortable, Behavior is calm, cooperative, jb4 appropriate for age. Pain: Denies pain. Neuro: Level of Consciousness is awake, alert, obeys commands, Oriented to person, place, situation. Cardiovascular: Patient's skin is warm and dry. Respiratory: Airway is patent Respiratory effort is even, unlabored, Respiratory pattern is regular, symmetrical. Derm: Skin is intact, Skin is pink, warm \T\ dry. 20:49 Reassessment: Patient appears in no apparent distress at this time. Patient and/or jb4 family updated on plan of care and expected duration. Pain level reassessed. Patient is alert, oriented x 3, equal unlabored respirations, skin warm/dry/pink. 22:00 Reassessment: Patient appears in no apparent distress at this time. Patient and/or jb4 family updated on plan of care and expected duration. Pain level reassessed. Patient is alert, oriented x 3, equal unlabored respirations, skin warm/dry/pink. 23:00 Reassessment: Patient appears in no apparent distress at this time. Patient and/or jb4 family updated on plan of care and expected duration. Pain level reassessed. Patient is alert, oriented x 3, equal unlabored respirations, skin warm/dry/pink. 07/23 00:00 Reassessment: Patient appears in no apparent distress at this time. Patient and/or jb4 family updated on plan of care and expected duration. Pain level reassessed. Pt is now A\T\Ox2, pt oriented to person and place. 01:30 Reassessment: Patient appears in no apparent distress at this time. No changes from jb4 previously documented assessment. Patient and/or family updated on plan of care and expected duration. Pain level reassessed. Vital Signs: 07/22 19:31 BP 177 / 77; Pulse 62; Resp 18; Temp 97.9(A); Pulse Ox 100% on Nebulizer Mask; Weight jb4 52 kg (M); Height 5 ft. 8 in. (R); 19:38 Pulse Ox 96% on R/A; jb4 20:49 BP 138 / 59; Pulse 56; Resp 16; Pulse Ox 96% on 2 lpm NC; jb4 21:54 BP 127 / 63; Pulse 56; Resp 17; Pulse Ox 99% on 2 lpm NC; mf3 23:15 BP 115 / 72; Pulse 58; Resp 16; Pulse Ox 97% on 2 lpm NC; jb4 07/23 00:25 BP 156 / 85; Pulse 62; Resp 20; Pulse Ox 98% on 2 lpm NC; jb4 01:45 BP 140 / 68; Pulse 63; Resp 19; Pulse Ox 97% on 2 lpm NC; jb4 07/22 19:31 Body Mass Index 17.43 (52.00 kg, 172.72 cm) jb4 ED Course: 07/22 19:22 Patient arrived in ED. rv1 19:33 Triage completed. jb4 19:33 Arm band placed on right wrist. jb4 19:35 Brando Eastman DO is Attending Physician. tt7 19:39 No provider procedures requiring assistance completed. Maintain EMS IV. Dressing jb4 intact. Good blood return noted. Site clean \T\ dry. Gauge \T\ site: 20g Rwrist. Flushed with 10 mL NS. 20:00 Rudy Dyer, RN is Primary Nurse. jb4 20:01 Basic Metabolic Panel Sent. jb4 20:01 CBC with Diff Sent. jb4 20:01 Troponin HS Sent. jb4 20:01 COVID-19 Ag + Flu A+B Ag Sent. jb4 20:57 XRAY Chest (1 view) In Process Unspecified. EDMS 23:10 Kristopher Bynum, RN is Hospitalizing Provider. tt7 07/23 01:59 Patient admitted, IV remains in place. jb4 Administered Medications: 07/22 21:53 Drug: MethylPrednisoLONE IVP 100 mg IVP once Route: IVP; Site: right wrist; mf3 21:53 Drug: Albuterol Inhalation 2.5 mg Inhalation once Route: Inhalation; mf3 21:53 Drug: Ipratropium Inhalation Aerosol 0.5 mg Inhalation once Route: Inhalation; mf3 21:53 Drug: Doxycycline PO 100 mg PO once Route: PO; mf3 Medication: 19:39 VIS not applicable for this client. jb4 Outcome: 23:10 Decision to Hospitalize by Provider. tt7 07/23 01:58 Admitted to Med/surg accompanied by nurse, via stretcher, room 212, with oxygen, with jb4 chart, Report called to CARLOS Rasmussen Condition: stable Discharge instructions given to patient, Instructed on the need for admit, Demonstrated understanding of instructions, 01:59 Patient left the ED. jb4 Signatures: Dispatcher [employer] EDRudy Pitt RN RN jb4 Corazon Townsend rv1 Mahsa Deluna RN RN mf3 Brando Eastman, DO tt7 Corrections: (The following items were deleted from the chart) 07/22 19:39 19:31 Chief complaint: EMS states: Pt reports SOB for the past 3 days that has been jb4 worsening. jb4
[2025-07-23] MEDS ORDERED: ALBUTEROL 2.5 MG/3 ML NEB SOL NEB PRN ×2 (00:18→12:32)
[2025-07-23] MEDS ORDERED: IPRATROPIUM BROM 0.5MG/2.5ML NEB PRN (00:23)
--- NOTE | 2025-07-23 00:24 | P.HP ---
Certification for Inpatient Patient admitted to: Inpatient With expected LOS: >2 Midnights Patient will require the following post-hospital care: None Practitioner: I am a practitioner with admitting privileges, knowledge of patient current condition, hospital course, and medical plan of care. Services: Services provided to patient in accordance with Admission requirements found in Title 42 Section 412.3 of the Code of Federal Regulations Patient History Date of Service: 07/23/25 Reason for admission: Acute COPD exacerbation. History of Present Illness: Patient is an 89-year-old female with past medical history of hypothyroidism, essential hypertension, nicotine dependence, brought to the ER complaining of worsening shortness of breath with associated inspiratory and expiratory wheezing, with no associated chest pain. Patient states she has been having occasional shortness of breath for the past couple of days, states today her shortness of breath progressively worsening associated with inspiratory and expiratory wheezing. Patient is a daily smoker of cigarettes, states she has been smoking for several years. Upon arrival to ER, patient was in severe respiratory distress, received multiple neb treatment, was placed on oxygen supplement due to hypoxic on room air. During admission assessment, patient was awake, alert and oriented x 3, denies of any chest pain or shortness of breath at this time while on oxygen supplement, patient with poor aeration both lungs, and expiratory wheezing. Patient able to communicate in full sentences at this time. Patient in no acute distress at this time. Allergies shellfish derived Allergy (Severe, Verified 11/15/16 10:06) n/v, swelling, sob egg Allergy (Verified 11/15/16 10:06) "very ill" Iodinated Contrast Media [Iodinated Contrast Media - IV Dye] Allergy (Verified 11/15/16 10:06) shellfish allergy Home Medications: Alendronate Sodium [Fosamax] 70 mg PO Q7D 11/14/16 Levothyroxine Sodium 100 mcg PO 0600 07/23/25 Mirtazapine [Remeron] 15 mg PO BEDTIME 07/23/25 - Past Medical/Surgical History -: Hypothyroid -: Osteoporosis -: Hyperlipidemia -: Left lumpectomy -: Tonsillectomy - Family History Mother -: Cancer Father -: Cancer Notes: lung - Social History Smoking Status: Current every day smoker Alcohol use: Yes CD- Drugs: No Caffeine use: Yes Place of Residence: Home Review of Systems 10-point ROS is otherwise unremarkable Respiratory: Shortness of Breath, SOB with Excertion, Wheezing Physical Examination - Physical Exam General: Alert, In no apparent distress, Oriented x3, Cooperative HEENT: Atraumatic, Normocephalic, PERRLA, Mucous membr. moist/pink, Sclerae nonicteric Neck: Supple, 2+ carotid pulse no bruit, JVD not distended, No Thyromegaly, No LAD, Without JVD or thyroid abnormality Respiratory: Diminished, Expiratory wheezes (Bilateral pleural ration, with coarse scattered crackles and rhonchi.), Inspiratory wheezes Cardiovascular: Normal pulses, Regular rate/rhythm, Normal S1 S2, No gallops, No rubs, Systolic murmur Capillary refill: <2 Seconds Gastrointestinal: Normal bowel sounds, Soft and benign, Non-distended, W/out hepatomegaly, No ascites, No tenderness, No masses, No rebound, No guarding Musculoskeletal: No clubbing, No swelling, No contractures, No erythema, No tenderness, No warmth Integumentary: No breakdown, No significant lesion, No tenderness/swelling, No erythema, No warmth, No cyanosis, Other (Multiple bruises bilateral upper extremities.) Neurological: Normal speech, Normal tone, Sensation intact, Normal reflexes 2+, Normal affect Lymphatics: No axilla or inguinal lymphadenopathy - Studies Laboratory Data (last 24 hrs) 07/22/25 07/22/25 19:53 19:53 WBC 5.80 Hgb 13.2 Hct 40.1 Plt Count 164 Sodium 144 Potassium 4.3 BUN 18 Creatinine 0.84 Glucose 111 H Female Exam - Breasts Breasts: Normal configuration, Normal contours, Symmetrical Assessment and Plan - Plan Patient admitted inpatient with COPD exacerbation. Patient currently on oxygen 3 L. Patient does not use oxygen at home. (1)COPD exacerbation and hypoxic. - Oxygen supplement currently on 3 L titrate to maintain O2 saturation above 90%. -Solu-Medrol 40 mg IV every 8 hours. -Levaquin 500 mg p.o. daily. -DuoNeb every 6 hours as needed. -Brovana 1 5 mcg neb twice daily. -Consult parcel post carrier Dr. Walden. (2) DVT prophylaxis. -Lovenox 40 mg subcu daily. (3)Chronic hypertension. -Medication to be resumed when reconciled. (4)Explained the entire treatment plan to the patient, solicited questions answered and voiced understanding. Discharge Plan: Home Plan to discharge in: 48 Hours - Advance Directives Does patient have a Living Will: No Does patient have a Durable POA for Healthcare: No - Code Status/Comfort Care Code Status Assessed: Yes Code Status: Full Code Critical Care: No Time Spent Managing Pts Care (In Minutes): 55
[2025-07-23] MEDS: METHYLPREDNISOLONE 40 MG INJ IV SCH (02:02)
[2025-07-23 02:31] VITALS: BMI 16.7
[2025-07-23] MEDS: ARFORMOTEROL TARTRATE 15 MCG/2 ML VIAL.NEB NEB SCH (08:02)
[2025-07-23] MEDS: levoFLOXacin 500 MG TAB PO SCH (08:33)
[2025-07-23] MEDS: predniSONE 20 MG TAB PO SCH (08:33)
[2025-07-23] MEDS: ENOXAPARIN 40 MG/0.4 ML SQ SCH (08:33)
[2025-07-23 09:21] LABS: Anion Gap 8.0 mEq/L (5.0-15.0); BUN Blood Urea Nitrogen 18.0 mg/dL (7-18); Glucose Level 170.0 mg/dL (74-106); Magnesium 1.9 mg/dL (1.6-2.4); Potassium 5.0 mEq/L (3.5-5.1)
--- NOTE | 2025-07-23 12:41 | P.CNS ---
Date of Consult: 07/23/25 Reason for Consult: Possible COPD exacerbation Chief Complaint: Acute COPD exacerbation. History of Present Illness: Patient is 89 years of age does not recall the events that precipitated her admission on reviewing the admission note she was brought to the emergency room complaining of wheezing been short of breath for the past couple of days patient lives at home with her active smoker apparently she was in severe respiratory distress is doing much better now is not on any treatment for obstructive airways disease Allergies shellfish derived Allergy (Severe, Verified 11/15/16 10:06) n/v, swelling, sob egg Allergy (Verified 11/15/16 10:06) "very ill" Iodinated Contrast Media [Iodinated Contrast Media - IV Dye] Allergy (Verified 11/15/16 10:06) shellfish allergy Home Medications: Alendronate Sodium [Fosamax] 70 mg PO Q7D 11/14/16 Levothyroxine Sodium 100 mcg PO 0600 07/23/25 Mirtazapine [Remeron] 15 mg PO BEDTIME 07/23/25 - Past Medical/Surgical History Diabetic: No -: Hypothyroid -: Osteoporosis -: Hyperlipidemia -: dementia -: COPD -: Left lumpectomy -: Tonsillectomy - Family History Mother Medical History: Cancer Father Medical History: Cancer Notes: lung - Social History Smoking Status: Former smoker Alcohol use: Yes CD- Drugs: No Caffeine use: Yes Place of Residence: Home Review of Systems Unremarkable Physical Examination Temp Pulse Resp BP Pulse Ox 97.6 F 63 20 122/60 99 07/23/25 08:00 07/23/25 08:00 07/23/25 08:00 07/23/25 08:00 07/23/25 08:00 General: Alert, Oriented x3 Respiratory: Clear to auscultation bilaterally, Diminished Cardiovascular: No edema, Regular rate/rhythm, Normal S1 S2 Gastrointestinal: Normal bowel sounds, Soft and benign Laboratory Data (last 24 hrs) 07/22/25 07/22/25 19:53 19:53 WBC 5.80 Hgb 13.2 Hct 40.1 Plt Count 164 Sodium 144 Potassium 4.3 BUN 18 Creatinine 0.84 Glucose 111 H - Problems (1) COPD exacerbation Current Visit: Yes Status: Acute Plan: Patient is 89 years of age admitted with presumed COPD exacerbation no prior history of COPD active smoker doing much better patient is a very poor historian vital signs stable oxygenation satisfactory ambulate check room air pulse ox discharged on long-acting bronchodilator steroids follow-up with me in 2 weeks chest x-ray some basilar interstitial changes add some antibiotics prior to discharge labs chemistries reviewed
--- NOTE | 2025-07-23 13:13 | P.DS ---
Admission Date: 07/23/25 Discharge Date: 07/24/25 Disposition: ROUTINE DISCHARGE Discharge Condition: FAIR Reason for Admission: Acute COPD exacerbation. Hospital Course: Diagnosis Acute COPD exacerbation Acute on chronic respiratory failure with hypoxia Tobacco use 89-year-old female with past medical history of hypothyroidism, essential hypertension, nicotine dependence, brought to the ER with a complaint of shortness of breath with associated inspiratory and expiratory wheezing. Patient is a daily smoker of cigarettes, states she has been smoking for several years. Upon arrival to ER, patient was in severe respiratory distress, received multiple neb treatment, was placed on oxygen supplement due to being hypoxic on room air. Chest x-ray showed hazy opacities in the bilateral lower lobes and i ncreased interstitial markings. No known diagnosis of COPD. Patient admitted to the medical floor and treated for COPD exacerbation with steroids, oral Levaquin, scheduled nebulizer treatment which included Brovana, albuterol and ipratropium. Patient was seen and evaluated by pulmonary Dr. Walden who recommended LABA, steroid and oral antibiotics on discharge. Patient wheezing and shortness of breath resolved however she is still hypoxic on room air. Given she has chronic interstitial changes, patient likely has chronic respiratory failure with hypoxia. She is discharged with home oxygen. Vital Signs/Physical Exam: Temp Pulse Resp BP Pulse Ox 97.7 F 74 20 131/60 93 07/23/25 12:00 07/23/25 12:00 07/23/25 12:00 07/23/25 12:00 07/23/25 12:00 General: Alert, In no apparent distress, Oriented x3 HEENT: Mucous membr. moist/pink Neck: Supple, JVD not distended Respiratory: Normal air movement, Other (No wheezes) Cardiovascular: No edema, Regular rate/rhythm, Normal S1 S2 Capillary refill: <2 Seconds Gastrointestinal: Normal bowel sounds, Soft and benign, Non-distended Musculoskeletal: No swelling, No tenderness Integumentary: No rashes, No cyanosis Neurological: Normal speech, Normal strength at 5/5 x4 extr, Cranial nerves 3-12 intact Laboratory Data at Discharge: WBC 5.80 thou/uL (4.3-10.9) 07/22/25 19:53 Hgb 13.2 g/dL (12.0-15.0) 07/22/25 19:53 Hct 40.1 % (36.0-45.0) 07/22/25 19:53 Plt Count 164 thou/uL (152-406) 07/22/25 19:53 Sodium 144 mEq/L (136-145) 07/23/25 08:54 Potassium 5.0 mEq/L (3.5-5.1) D 07/23/25 08:54 BUN 18 mg/dL (7-18) 07/23/25 08:54 Creatinine 0.74 mg/dL (0.55-1.02) 07/23/25 08:54 Glucose 170 mg/dL (74-106) H 07/23/25 08:54 Phosphorus 2.7 mg/dL (2.5-4.9) 07/23/25 08:54 Magnesium 1.9 mg/dL (1.6-2.4) 07/23/25 08:54 Home Medications: Alendronate Sodium [Fosamax] 70 mg PO Q7D 11/14/16 Albuterol Sulfate [Albuterol Sulfate Hfa] 1 puff IH Q4HWA PRN #1 ea 07/23/25 Fluticasone/Umeclidin/Vilanter [Trelegy Ellipta 200-62.5-25] 1 each IH DAILY #30 ea 07/23/25 Levothyroxine Sodium 100 mcg PO 0600 07/23/25 Mirtazapine [Remeron*] 15 mg PO BEDTIME 07/23/25 levoFLOXacin [Levaquin*] 500 mg PO DAILY #5 tab 07/23/25 predniSONE [Prednisone*] 20 mg PO BID #10 tab 07/23/25 New Medications: Albuterol Sulfate [Albuterol Sulfate Hfa] 1 puff IH Q4HWA PRN #1 ea PRN Reason: Wheezing levoFLOXacin [Levaquin*] 500 mg PO DAILY #5 tab predniSONE [Prednisone*] 20 mg PO BID #10 tab Fluticasone/Umeclidin/Vilanter [Trelegy Ellipta 200-62.5-25] 1 each IH DAILY #30 ea Physician Discharge Instructions: 89-year-old female with past medical history of hypothyroidism, essential hypertension, nicotine dependence, brought to the ER with a complaint of shortness of breath with associated inspiratory and expiratory wheezing. Patient is a daily smoker of cigarettes, states she has been smoking for several years. Upon arrival to ER, patient was in severe respiratory distress, received multiple neb treatment, was placed on oxygen supplement due to being hypoxic on room air. Chest x-ray showed hazy opacities in the bilateral lower lobes and in creased interstitial markings. No known diagnosis of COPD. Patient admitted to the medical floor and treated for COPD exacerbation with steroids, oral Levaquin, scheduled nebulizer treatment which included Brovana, albuterol and ipratropium. Patient was seen and evaluated by pulmonary Dr. Walden who recommended LABA, steroid and oral antibiotics on discharge. Patient wheezing and shortness of breath resolved however she is still hypoxic on room air. Given she has chronic interstitial changes, patient likely has chronic respiratory failure with hypoxia. She is discharged with home oxygen. Diet: AHA Activity: Fall precautions Followup: Smooth Walden MD [ACTIVE - CAN ADMIT] - 1-2 Weeks NONE,NONE [Primary Care Provider] - Time spent managing pt's care (in minutes): 35
--- NOTE | 2025-07-23 17:51 | P.PN ---
Date of Service: 07/23/25 Patient seen and examined. She reports significant improvement in her shortness of breath and states she feels at baseline. On examination: Adequate breath sounds bilaterally no wheezing. Patient desaturated to 83% on room air. COPD exacerbation significantly improved however patient is needing oxygen. Chest x-ray reviewed and noted patient has chronic interstitial changes. Patient likely has chronic respiratory failure with hypoxia Home oxygen arranged. Clinically stable for discharge pending home oxygen delivery. Continue antibiotics, steroids and bronchodilators.
[2025-07-23] MEDS: ENSURE ENLIVE 237 ML CAN PO SCH (20:08)
[2025-07-24] MEDS: ALPRAZOLAM 0.25 MG TABLET PO ONE (00:09)
[2025-07-24 04:41] LABS: Absolute Lymphocytes (CBC) 0.8 K/uL (0.7-4.9); Hematocrit 39.2 % (36.0-45.0); Hemoglobin 13.3 g/dL (12.0-15.0); MCH 30.4 pg (27.0-35.0); MCHC 33.8 g/dL (32.0-36.0); MCV 89.8 fL (80-100); MPV 8.7 fL (7.6-11.3); Nucleated RBC Absolute Count 0.0 (0-0); Nucleated Red Blood Cells % 0.0 % (0-0); RBC Red Blood Cell Count 4.36 M/uL (3.86-4.86); White Blood Count 10.10 thou/uL (4.3-10.9)
[2025-07-24 04:51] LABS: Anion Gap 6.5 mEq/L (5.0-15.0); BUN Blood Urea Nitrogen 27.0 mg/dL (7-18); Glucose Level 119.0 mg/dL (74-106); Magnesium 1.8 mg/dL (1.6-2.4); Potassium 4.5 mEq/L (3.5-5.1)
[2025-07-24 05:10] LABS: Blood Morphology Comment NOT SEEN (NOT SEEN); Differential Total Cells Count 100; Segmented Neutrophils 76 % (40-80)
[2025-07-24 08:52] VITALS: O2SAT 96
[2025-07-24 12:42] VITALS: BP 126/63; TEMP 98.3
== END 2025-07-24 13:05 | disposition home or self-care (01) | DRG 189 ==
LOC: ER 19:19 → ERHOLD 07-23 00:14 → 2ND 07-23 01:34
PROVIDERS: ADMIT Internal Medicine; ATTEND Internal Medicine
DX: J96.21 Acute and chronic respiratory failure with hypoxia (principal); E43 Unspecified severe protein-calorie malnutrition; J44.1 Chronic obstructive pulmonary disease with (acute) exacerbation; Z68.1 Body mass index [BMI] 19.9 or less, adult; E03.9 Hypothyroidism, unspecified; I10 Essential (primary) hypertension; M81.0 Age-related osteoporosis without current pathological fracture; F17.200 Nicotine dependence, unspecified, uncomplicated; Z91.013 Allergy to seafood; Z91.0120 Allergy to eggs, unspecified; Z79.890 Hormone replacement therapy; Z79.899 Other long term (current) drug therapy; Z11.52 Encounter for screening for COVID-19
CPT/HCPCS: 36415; 71045; 80048; 83735; 84100; 84484; 85025; 87428; 93005; 94010; 96374; 99285; J1650; J2919; J7512; J7605; J7613; J7644

== ENCOUNTER 2025-07-29 19:41 | Emergency (ER) | payer OTHER ==
[2025-07-29 20:04] LABS: Absolute Lymphocytes (CBC) 0.7 K/uL (0.7-4.9); Hematocrit 47.7 % (36.0-45.0); Hemoglobin 15.7 g/dL (12.0-15.0); MCH 29.6 pg (27.0-35.0); MCHC 32.8 g/dL (32.0-36.0); MCV 90.2 fL (80-100); MPV 8.7 fL (7.6-11.3); Nucleated RBC Absolute Count 0.0 (0-0); Nucleated Red Blood Cells % 0.1 % (0-0); RBC Red Blood Cell Count 5.29 M/uL (3.86-4.86); White Blood Count 8.60 thou/uL (4.3-10.9)
[2025-07-29 20:16] LABS: Blood Morphology Comment NOT SEEN (NOT SEEN); White Blood Cell Scan OK (OK)
[2025-07-29 20:24] LABS: Anion Gap 7.1 mEq/L (5.0-15.0); BUN Blood Urea Nitrogen 29.0 mg/dL (7-18); Glucose Level 122.0 mg/dL (74-106); Potassium 4.1 mEq/L (3.5-5.1); Troponin High Sensitivity 6.4 pg/mL (<58.9)
--- NOTE | 2025-07-29 20:43 | RAD REPORT ---
EXAM: Chest Single View HISTORY: 89 years Female DYSPNEA COMPARISON: 07/22/2025 FINDINGS: LUNGS/PLEURA: Emphysema. Chronic interstitial lung changes in the bases. No definite acute process. CARDIAC/MEDIASTINUM: Large hiatal hernia. UPPER ABDOMEN: No significant abnormality. BONES: No acute abnormality. Remote left-sided rib fractures but LINES/TUBES/OTHER: N/A IMPRESSION: Emphysema. Similar basilar opacities that could reflect either chronic interstitial lung changes or s equela of pneumonia/pneumonitis.
[2025-07-29] MEDS ORDERED: DIPHENHYDRAMINE 50 MG/ML VIAL ONE (21:17)
--- NOTE | 2025-07-29 21:58 | RAD REPORT ---
EXAMINATION: CTA CHEST PE CLINICAL INDICATION: Female, 89 years old. DYSPNEA TECHNIQUE: This examination was performed according to an angiographic protocol with 3D post-processi ng. This involves 3D reconstructions, MIPs, volume rendered images and/or shaded surface rendering. One or more of the following dose reduction techniques were used: Automated exposure control, adjustm ent of the mA and/or kV according to patient size, and/or iterative reconstruction. Unless otherwise specified, incidental findings do not require dedicated imaging follow-up. [id number]. COMPARISON: No priors. FINDINGS: LOWER NECK: Visualized thyroid gland and soft tissues are normal. MEDIASTINUM AND LYMPH NODES: No mediastinal mass or fluid collection. Normal size mediastinal, hilar, and axillary lymph nodes. Very large hiatal hernia. THORACIC AORTA: No thoracic aortic aneurysm. Atherosclerotic changes are present. PULMONARY ARTERIES: Caliber is within normal limits. No pulmonary emboli identified to the level of t he segmental pulmonary arteries. The subsegmental pulmonary arteries cannot be adequately assessed due to motion/suboptimal contrast opacification. HEART: Mild cardiomegaly. No coronary calcifications.No significant pericardial effusion. LUNGS AND AIRWAYS: Small area of nodular consolidation in the left lower lobe. Background emphysema. Motion artifact limits evaluation for pulmonary nodule detection. PLEURA: No pleural effusions. No pneumothorax. OSSEOUS STRUCTURES AND CHEST WALL: Remote T1 compression fracture. UPPER ABDOMEN: No acute abnormalities. IMPRESSION: Negative for pulmonary embolism. Small focus of peripheral consolidation left lower lobe could reflec t pneumonia or pneumonitis. Large hiatal hernia with totally intrathoracic stomach.
--- NOTE | 2025-07-29 22:13 | EDPHYS ---
Physician Documentation [facility] Name: Addis Benitez Age: 89 yrs Sex: Female : 1935 Arrival Date: 07/29/2025 Time: 19:41 Bed 7 Private MD: ED Physician Brando Eastman HPI: 07/29 19:44 This 89 yrs old Female presents to ER via EMS with complaints of SOB. tt7 20:58 Patient reports she can't breathe out of her nose and feels SOB. Was seen here last tt7 week for similar symptoms and states still SOB. No chest pain, fever, cough. Historical: - Allergies: 19:53 Eggs; al5 19:53 SHELLFISH; al5 19:53 shrimp; al5 - PMHx: 19:53 hypercalcemia; Hypothyroidism; Osteoporosis; thrombocytopenia; al5 - PSHx: 19:53 Lumpectomy of breast; al5 - Immunization history:: Adult Immunizations up to date. - Infectious Disease History:: Denies. - Social history:: Smoking status: Patient denies any tobacco usage or history of. ROS: 20:59 Constitutional: negative for fever. Cardiovascular: negative for chest pain. tt7 Abdomen/GI: negative for abdominal pain, nausea, vomiting, diarrhea. MS/Extremity: negative for injury and deformity. Skin: negative for rash. Neuro: negative for focal weakness. 20:59 Respiratory: Positive for shortness of breath, Exam: 20:59 Constitutional: vital signs reviewed, well appearing. Head/Face: normocephalic, tt7 atraumatic. Eyes: no conjunctival injection, anicteric sclerae. ENT: mucus membranes moist. Neck: trachea midline, no JVD, no meningismus. Chest/axilla: normal chest wall appearance and motion, nontender, no crepitus. Cardiovascular: regular rate and rhythm, no murmurs, no rubs, no lower extremity edema. Respiratory: normal respiratory effort, no accessory muscle use, lungs CTAB. Abdomen/GI: soft, nondistended, nontender, no guarding or rebound, negative Church's sign, no McBurney point tenderness. Back: normal ROM. Skin: warm, dry, intact, normal turgor, normal color, no rash. MS/ Extremity: normal ROM of extremities, no gross deformities. Neuro: alert and oriented with appropriate mental status, normal speech, follows commands, no focal neurologic deficits. Vital Signs: 19:49 BP 140 / 69; Pulse 82; Resp 21; Temp 98(T); Pulse Ox 97% on 3 lpm NC; Weight 50 kg; al5 Height 5 ft. 9 in. ; 21:13 BP 126 / 74; Pulse 84; Resp 20; Pulse Ox 99% on 3 lpm NC; kd3 22:34 BP 126 / 74; Pulse 65; Resp 18; Pulse Ox 100% ; kb4 19:49 Body Mass Index 16.28 (50.00 kg, 175.26 cm) al5 MDM: 19:42 Medical Screening Exam initiated tt7 19:46 Differential Diagnosis ACS, pneumonia, pneumothorax, COPD exacerbation, acute upper tt7 respiratory infection, COVID-19 infection, influenza infection, pulmonary embolism. Data reviewed: vital signs, nurses notes, old medical records, I reviewed patient's most recent ED visit chart from 07/22/2025 lab test result(s), EKG, radiologic studies. 19:56 ED course: I independently interpreted the patient's EKG performed on 07/29/2025 at tt7 1952. On my interpretation, EKG demonstrates normal sinus rhythm, ventricular rate 72 bpm, left axis deviation, normal QRS interval, normal ST segments, no STEMI. 22:17 ED course: CT angiogram of the chest was ordered to rule out pulmonary embolism as tt7 patient had elevated D-dimer greater than 1, CT imaging did not show any evidence of pulmonary embolism, some nodularity in the left lower lobe that could represent pneumonia, clinically patient not having fevers, does not have a significant leukocytosis, not complaining of cough, but due to her complaint of shortness of breath we will be reasonable to treat her with short course of 5 days of levofloxacin, patient also provided with nasal decongestant spray prescription as her main complaint is not being able to breathe out of her nose, after completion of the patient's emergency department evaluation, I do not suspect a life-threatening or disabling process. Patient is medically stable and not in need of emergent medical intervention. I had a detailed discussion with the patient regarding the historical points, exam findings, emergency department evaluation, diagnostic results, and the discharge diagnosis. I instructed the patient on outpatient management of their condition. I discussed the need for outpatient follow-up with a primary care physician. I informed the patient on return precautions, including the need to return to the ED if symptoms do not improve, worsen, or if there are any questions or concerns that arise at home. The patient was discharged in stable condition. 07/29 19:43 Order name: Basic Metabolic Panel; Complete Time: 20:37 tt7 07/29 19:43 Order name: CBC with Diff; Complete Time: 20:37 tt7 07/29 19:43 Order name: D-Dimer; Complete Time: 20:37 tt7 07/29 19:43 Order name: Troponin HS; Complete Time: 20:37 tt7 07/29 20:16 Order name: CBC Smear Scan; Complete Time: 20:37 EDMS 07/29 19:43 Order name: XRAY Chest (1 view); Complete Time: 20:54 tt7 07/29 20:42 Order name: CT Chest For PE Angio; Complete Time: 22:00 tt7 07/29 19:43 Order name: EKG; Complete Time: 19:44 tt7 07/29 19:43 Order name: Cardiac monitoring; Complete Time: 20:00 tt7 07/29 19:43 Order name: EKG - Nurse/Tech; Complete Time: 20:00 tt7 07/29 19:43 Order name: IV Saline Lock; Complete Time: 20:00 tt7 07/29 19:43 Order name: Labs collected and sent; Complete Time: 20:00 tt7 07/29 19:43 Order name: O2 Per Protocol; Complete Time: 20:00 tt7 07/29 19:43 Order name: O2 Sat Monitoring; Complete Time: 20:00 tt7 Administered Medications: 21:28 Drug: Decadron - Dexamethasone IVP 10 mg IVP once Route: IVP; Site: right forearm; kd3 22:34 Follow up: Response: No adverse reaction kb4 21:29 Drug: diphenhydrAMINE IVP 25 mg IVP once Route: IVP; Site: right forearm; kd3 22:34 Follow up: Response: No adverse reaction kb4 22:33 Drug: LevOfloxacin PO 750 mg PO once Route: PO; kb4 22:58 Follow up: Response: No adverse reaction kd3 22:33 Drug: Oxymetazoline Intranasal Drops (0.05 %) 3 sprays Intranasal once Route: kb4 Intranasal; Site: both nares; Disposition: 22:20 Co-signature as Attending Physician, Brando Eastman DO. tt7 Disposition Summary: 07/29/25 22:13 Discharge Ordered Notes: Location: Home tt7 Problem: an acute exacerbation tt7 Symptoms: have improved tt7 Condition: Stable tt7 Diagnosis - Other pneumonia, unspecified organism tt7 Followup: tt7 - With: Emergency Department - When: As needed - Reason: Followup: tt7 - With: Private Physician - When: 2 - 3 days - Reason: Recheck today's complaints, Re-evaluation by your physician Discharge Instructions: - Discharge Summary Sheet tt7 - Community-Acquired Pneumonia, Adult tt7 Forms: - Medication Reconciliation Form tt7 - Antibiotic Education tt7 - Prescription Opioid Use tt7 - Patient Portal Instructions tt7 - Leadership Thank You Letter tt7 Prescriptions: - Afrin (oxymetazoline) 0.05 % Nasal Mist - administer 2 spray INTRANASAL route every 12 hours for 5 days as needed for tt7 nasal congestion; 1 Unspecified; Refills: 0, Product Selection Permitted - levofloxacin 750 mg Oral tablet - take 1 tablet ORAL route once daily for 5 days; 5 tablet; Refills: 0, Product tt7 Selection Permitted Signatures: Dispatcher [employer] EDMS Rosa Husain RN RN kd3 Araceli Dukes RN RN al5 Cristela Torres RN RN kb4 Brando Eastman DO DO tt7 Corrections: (The following items were deleted from the chart) 20:08 19:56 ED course: . tt7 tt7
--- NOTE | 2025-07-29 22:13 | ER ---
Nurse's Notes [facility] Name: Addis Benitez Age: 89 yrs Sex: Female : 1935 Arrival Date: 07/29/2025 Time: 19:41 Bed 7 Private MD: Diagnosis: Other pneumonia, unspecified organism Presentation: 07/29 19:49 Chief complaint: EMS states: patient c/o SOB due to not being able to breathe out of al5 her nose. was seen here for the same thing a week ago, states it has not gotten better. Coronavirus screen: At this time, the client does not indicate any symptoms associated with coronavirus-19. Ebola Screen: No symptoms or risks identified at this time. Initial Sepsis Screen: Does the patient meet any 2 criteria? RR > 20 per min. Does the patient have a suspected source of infection? No. Patient's initial sepsis screen is negative. Risk Assessment: Do you want to hurt yourself or someone else? Patient reports no desire to harm self or others. Onset of symptoms was July 22, 2025. 19:49 Method Of Arrival: EMS: [facility] al5 19:49 Acuity: VERA 3 al5 Triage Assessment: 19:53 General: Appears in no apparent distress. uncomfortable, Behavior is cooperative. Pain: al5 Denies pain. EENT: No signs and/or symptoms were reported regarding the EENT system. Neuro: Level of Consciousness is awake, alert, obeys commands, Oriented to person, place, time, situation. Cardiovascular: Patient's skin is warm and dry. Respiratory: Reports shortness of breath is not able to breathe out of her nose Respiratory effort is even, unlabored, Respiratory pattern is regular, symmetrical, Breath sounds are clear bilaterally. GI: No signs and/or symptoms were reported involving the gastrointestinal system. : No signs and/or symptoms were reported regarding the genitourinary system. Derm: Skin is intact, Skin is pink, warm \T\ dry. normal. Musculoskeletal: Circulation, motion, and sensation intact. Range of motion: intact in all extremities. Historical: - Allergies: 19:53 Eggs; al5 19:53 SHELLFISH; al5 19:53 shrimp; al5 - PMHx: 19:53 hypercalcemia; Hypothyroidism; Osteoporosis; thrombocytopenia; al5 - PSHx: 19:53 Lumpectomy of breast; al5 - Immunization history:: Adult Immunizations up to date. - Infectious Disease History:: Denies. - Social history:: Smoking status: Patient denies any tobacco usage or history of. Screenin:02 [facility] ED Fall Risk Assessment (Adult) History of falling in the last 3 months, kd3 including since admission No falls in past 3 months (0 pts) Confusion or Disorientation No (0 pts) Intoxicated or Sedated No (0 pts) Impaired Gait Yes (1 pt) Mobility Assist Device Used No (0 pt) Altered Elimination No (0 pt) Score/Fall Risk Level 0 - 2 = Low Risk Maintained a safe environment. Abuse screen: Denies threats or abuse. Denies injuries from another. Nutritional screening: No deficits noted. Tuberculosis screening: No symptoms or risk factors identified. Assessment: 19:57 Reassessment: see triage assessment. al5 20:01 General: Appears in no apparent distress. Behavior is calm, cooperative. Neuro: Level kd3 of Consciousness is awake, alert, obeys commands, Oriented to person, place, time, situation. Cardiovascular: Capillary refill < 3 seconds Patient's skin is warm and dry. Respiratory: Airway is patent Trachea midline Respiratory effort is even, unlabored, Respiratory pattern is tachypnea. 21:14 Reassessment: Patient and/or family updated on plan of care and expected duration. Pain kd3 level reassessed. Patient is alert, oriented x 3, equal unlabored respirations, skin warm/dry/pink. 22:35 Reassessment: Patient and/or family updated on plan of care and expected duration. Pain kb4 level reassessed. Patient is alert, oriented x 3, equal unlabored respirations, skin warm/dry/pink. Vital Signs: 19:49 BP 140 / 69; Pulse 82; Resp 21; Temp 98(T); Pulse Ox 97% on 3 lpm NC; Weight 50 kg; al5 Height 5 ft. 9 in. ; 21:13 BP 126 / 74; Pulse 84; Resp 20; Pulse Ox 99% on 3 lpm NC; kd3 22:34 BP 126 / 74; Pulse 65; Resp 18; Pulse Ox 100% ; kb4 19:49 Body Mass Index 16.28 (50.00 kg, 175.26 cm) al5 ED Course: 19:42 Patient arrived in ED. kmf 19:42 Brando Eastman DO is Attending Physician. tt7 19:50 Inserted saline lock: 22 gauge in right forearm, using aseptic technique. Blood kd3 collected. Flushed with 10 mL NS. 19:50 Initial lab(s) drawn, by me, sent to lab. EKG done, by ED staff, reviewed by Brando Eastman DO. 19:53 Triage completed. al5 19:53 Arm band placed on right wrist. Patient placed in the treatment room, in view of staff al5 members, on oxygen, on investigator internal revenue, on pulse oximetry. 19:56 Cristela Torres, RN is Primary Nurse. kb4 20:00 Basic Metabolic Panel Sent. kd3 20:00 CBC with Diff Sent. kd3 20:00 D-Dimer Sent. kd3 20:00 Troponin HS Sent. kd3 20:30 XRAY Chest (1 view) In Process Unspecified. EDMS 21:34 CT Chest For PE Angio In Process Unspecified. EDMS 22:53 No provider procedures requiring assistance completed. IV discontinued, intact, kd3 bleeding controlled, No redness/swelling at site. Pressure dressing applied. 22:57 Patient has correct armband on for positive identification. Provided Education on: kd3 correction contacted for antibiotic instructions . Administered Medications: 21:28 Drug: Decadron - Dexamethasone IVP 10 mg IVP once Route: IVP; Site: right forearm; kd3 22:34 Follow up: Response: No adverse reaction kb4 21:29 Drug: diphenhydrAMINE IVP 25 mg IVP once Route: IVP; Site: right forearm; kd3 22:34 Follow up: Response: No adverse reaction kb4 22:33 Drug: LevOfloxacin PO 750 mg PO once Route: PO; kb4 22:58 Follow up: Response: No adverse reaction kd3 22:33 Drug: Oxymetazoline Intranasal Drops (0.05 %) 3 sprays Intranasal once Route: kb4 Intranasal; Site: both nares; Medication: 19:57 VIS not applicable for this client. al5 Outcome: 22:13 Discharge ordered by MD. tt7 22:54 Discharged to home via ambulance, kd3 22:54 Condition: stable 22:54 Discharge instructions given to patient, family, Instructed on discharge instructions, Demonstrated understanding of instructions, Prescriptions given X 2, 23:19 Patient left the ED. kd3 Signatures: Dispatcher [employer] Rosa Wen RN RN kd3 Hyacinth Hunt [facility] Araceli Dukes RN RN al5 Cristela Torres RN RN kb4 Brando Eastman DO DO tt7 Corrections: (The following items were deleted from the chart) 22:39 19:49 Note when ems arrived, patient was on 3L nasal cannula, but patient states she al5 does not use oxygen at home al5
[2025-07-29] MEDS ORDERED: OXYMETAZOLINE HCL 0.05% 30ML NAS ONE (22:31)
[2025-07-29] MEDS ORDERED: levoFLOXacin 250 MG TAB ONE (22:31)
[2025-07-30 00:24] VITALS: TEMP 98
[2025-07-30 00:26] VITALS: BP 126/74
[2025-07-30 00:27] VITALS: O2SAT 100
== END 2025-07-29 23:19 | disposition home or self-care (01) ==
LOC: ER 19:41
DX: J18.8 Other pneumonia, unspecified organism (principal)
CPT/HCPCS: 93005; 85025; 80048; 36415; 85379; 84484; 71275; 71045; 96375; 96374; 99285; Q9967; J1200; J1100